=== PATIENT | female | born 1955 | race Caucasian/White ===

== ENCOUNTER → 2016-11-02 | Outpatient (CLI) | payer BC, SELFPAY ==
--- NOTE | 2016-11-02 10:50 | US ---
EXAM DESCRIPTION: Right leg venous Doppler sonogram CLINICAL HISTORY: Leg pain concern for DVT COMPARISON: None Available. TECHNIQUE: Grayscale color flow and spectral venous doppler sonography right leg FINDINGS: Deep veins of the right leg are patent and compressible. No intraluminal thrombus. Normal spontaneous and augmented flow. IMPRESSION: No evidence of deep venous thrombosis right leg Electronically signed by: Augustine Lake MD 11/02/2016 10:48
== END ==
LOC: US 09:44
PROVIDERS: ATTEND Nurse Practitioner Family
DX: M79.604 Pain in right leg (principal)

== ENCOUNTER → 2016-11-09 | Outpatient (CLI) | payer BC, SELFPAY ==
--- NOTE | 2016-11-10 08:06 | MRI ---
EXAM DESCRIPTION: MR LUMBAR SPINE WITHOUT IV CONTRAST CLINICAL HISTORY: Right lower extremity radiculopathy. Back pain. COMPARISON: None Available. TECHNIQUE: MRI of the lumbar spine is performed according to our usual protocol with axial and sagittal multi sequence imaging. FINDINGS: There is good alignment of the lumbar spine. There is no vertebral pathology. L1-2: the disc is well hydrated. There is no loss of height. There is no bulging. The facets are unremarkable with no significant hypertrophy. There is no stenosis or impingement. L2-3: the disc is well hydrated. There is no loss of height. There is no bulging. The facets are unremarkable with no significant hypertrophy. There is no stenosis or impingement. L3-4: the disc is well hydrated. There is no loss of height. There is no bulging. The facets are unremarkable with no significant hypertrophy. There is no stenosis or impingement. L4-5: the disc is well hydrated. There is no loss of height. There is no bulging. The facets are unremarkable with no significant hypertrophy. There is no stenosis or impingement. L5-S1: There is marked narrowing and desiccation of the disc with a large right paracentral disc herniation. The disc herniation measures 12 mm beyond the expected posterior disc margin and measures about 12 mm in transverse diameter as well. This disc herniation markedly displaces the descending right S1 nerve root somewhat effacing the right anterolateral aspect of the thecal sac as well. There is no resulting spinal stenosis or L5 foraminal stenosis. The facets are unremarkable at this level. IMPRESSION: 1. Large right paracentral L5-S1 disc herniation Electronically signed by: Brennon Alegria MD 11/10/2016 08:04
== END ==
LOC: RAD 14:04
PROVIDERS: ATTEND Family Medicine
DX: M51.16 Intervertebral disc disorders with radiculopathy, lumbar region (principal)

== ENCOUNTER 2017-07-26 12:44 | Emergency (ER) | payer BC, SELFPAY ==
[2017-07-26 13:32] VITALS: TEMP 98
[2017-07-26] MEDS ORDERED: KETOROLAC TROMETHAMINE INJ 30 MG/ML VIAL IM ONE (13:42)
[2017-07-26] MEDS ORDERED: PROMETHAZINE HCL INJ 25 MG in SODIUM CHLORIDE 0.9% 50ML 50 ML IVPB ONE (13:42)
[2017-07-26] MEDS ORDERED: HYDROmorphone HCL INJ 2 MG/ML VIAL IV ONE (13:42)
[2017-07-26] MEDS ORDERED: SODIUM CHLORIDE 0.9% 1000ML 1,000 ML IVS ONE ×2 (13:42→16:28)
[2017-07-26] MEDS ORDERED: PROMETHAZINE HCL INJ 25 MG/ML VIAL ONE ×2 (14:09→14:48)
[2017-07-26] MEDS ORDERED: SODIUM CHLORIDE 0.9% 50ML 0 ML ONE (14:10)
--- NOTE | 2017-07-26 14:43 | RAD ---
EXAM DESCRIPTION: KUB CLINICAL HISTORY: possible right kidney stone COMPARISON: None. IMPRESSION: Single AP supine view of the abdomen shows a nonspecific, nonobstructive bowel gas pattern. No air-filled dilated loops of small bowel are seen. No abnormal calcifications are seen in the expected location of the kidneys or ureters. Several vascular appearing calcifications are seen in the lower left hemipelvis. Electronically signed by: Remigio Pastrana MD 07/26/2017 2:41 PM CDT
[2017-07-26] MEDS ORDERED: SODIUM CHLORIDE 0.9% 50ML 50 ML ONE (14:48)
--- NOTE | 2017-07-26 17:43 | CT ---
EXAM DESCRIPTION: Abdoment/Pelvis w/o Contrast CLINICAL HISTORY: suspect left kidney stone COMPARISON: None Available TECHNIQUE: Contiguous axial images of the abdomen and pelvis were obtained followed by reconstruction images. This exam was performed according to our departmental dose-optimization program, which includes automated exposure control, adjustment of the mA and/or kV according to patient size and/or use of iterative reconstruction technique. FINDINGS: Linear opacities within the lungs may represent scar versus subsegmental atelectasis. The left kidney demonstrates hydronephrosis due to a 4 mm stone within the distal ureter. There are other nonobstructing stones within the kidneys. Calcifications within the pelvis compatible with phleboliths. There are diverticuli without CT evidence of acute diverticulitis. There is an umbilical hernia with fatty component only. The liver, spleen, pancreas and kidneys are otherwise within normal limits. . The gallbladder is unremarkable by CT criteria. Adrenal glands are within normal limits. Aorta is of normal caliber and tapering. There is no free fluid in the abdomen or pelvis. There is no bowel obstruction. There is no stranding of the mesenteric fat to suggest an inflammatory response. The appendix is within normal limits. There is no pericecal inflammation. IMPRESSION: Left-sided hydronephrosis due to a 4 mm stone within the distal ureter. Electronically signed by: Jose Manuel Infante MD 07/26/2017 5:42 PM CDT
[2017-07-26] MEDS ORDERED: amLODIPine BESYLATE 5 MG TAB PO ONE (17:48)
--- NOTE | 2017-07-26 17:50 | ED.PDOC ---
History of Present Illness - General Chief Complaint: Problem Time Seen by Provider: 07/26/17 12:45 Source: patient Exam Limitations: no limitations - History of Present Illness Initial Comments: the patient is 61-year-old female presenting to the emergency room secondary to left flank pain. It started acutely around 2:30 this morning. After approximately 12-14 hours she can take the pain no longer so she should appear. She reports that it feels like a kidney stone she has had in the past. It is flank pain with some radiation to the groin. There is some dysuria. When the pain has gotten its worst it is making her throw up. No syncope. No chest pain. Timing/Duration: constant Severity: severe Improving Factors: nothing Worsening Factors: nothing Associated Symptoms: nausea/vomiting Allergies/Adverse Reactions: Allergies NO KNOWN ALLERGY Allergy (Verified 04/07/14 09:56) Home Medications: Ambulatory Orders Rrgdxehxywzgj-Rxxr-Pzcnugntbr [Fioricet] 1 ea PO Q8H PRN #21 tab 07/26/17 Ondansetron [Zofran Odt] 4 mg PO Q4H PRN #10 tab 07/26/17 Review of Systems - Review of Systems Constitutional: States: no symptoms reported EENTM: States: no symptoms reported Respiratory: States: no symptoms reported Cardiology: States: no symptoms reported Gastrointestinal/Abdominal: States: nausea, vomiting Genitourinary: States: dysuria, frequency, pain Musculoskeletal: States: back pain Skin: States: no symptoms reported Neurological: States: no symptoms reported Endocrine: States: no symptoms reported All other Systems: No Change from Baseline Past Medical History (General) - Patient Medical History Hx Seizures: No Hx Stroke: No Hx Dementia: No Hx Asthma: No Hx of COPD: No Hx Cardiac Disorders: No Hx Pacemaker: No Hx Diabetes: No Surgical History: other Family Medical History - Family History Mother Family History: No Known Physical Exam - Physical Exam General Appearance: Alert, Anxious, Obvious distress Eye Exam: bilateral normal Ears, Nose, Throat: hearing grossly normal, normal ENT inspection, normal pharynx Neck: full range of motion, supple Respiratory: chest non-tender, lungs clear, normal breath sounds, no respiratory distress, no accessory muscle use Cardiovascular/Chest: normal peripheral pulses, regular rate, rhythm, no edema Peripheral Pulses: radial,right: 2+, radial,left: 2+, dorsalis pedis,right: 2+, dorsalis pedis,left: 2+, posterior tibialis,right: 2+, posterior tibialis,left: 2+ Gastrointestinal/Abdominal: non tender, soft Rectal Exam: deferred Back Exam: normal inspection, no vertebral tenderness, CVA tenderness (L) Extremity: normal range of motion, non-tender, normal inspection, no pedal edema 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 The stone does appear to be moving down the ureter. It is 4 mm in diameter. It is likely that she will pass this on her own. The patient will be written for Fioricet and Zofran for as needed use. She needs to increase her fluid intake. She needs to ambulate. ER warnings are given for any worsening. She needs to follow up with her primary care doctor later this week for reevaluation. No evidence of urinary tract infection at this time. - Results/Orders Results/Orders: Laboratory Results - last 24 hr 07/26/17 07/26/17 07/26/17 14:05 14:05 16:00 WBC 11.4 H RBC 4.51 Hgb 14.4 Hct 43.1 MCV 95.5 MCH 32.0 H MCHC 33.5 RDW 14.2 Plt Count 219 MPV 8.1 Absolute Neuts (auto) 9.80 H Absolute Lymphs (auto) 1.00 Absolute Monos (auto) 0.40 Absolute Eos (auto) 0.00 Absolute Basos (auto) 0.10 Neutrophils % 86.8 H Lymphocytes % 9.0 L Monocytes % 3.7 Eosinophils % 0.0 L Basophils % 0.5 Sodium 135 Potassium 4.1 Chloride 100 L Carbon Dioxide 26 Anion Gap 13.1 BUN 15 Creatinine 0.96 BUN/Creatinine Ratio 15.6 Random Glucose 133 H Serum Osmolality 272.8 L Calcium 9.8 Magnesium 2.1 Total Bilirubin 0.9 AST 20 ALT 22 Alkaline Phosphatase 51 Creatine Kinase 75 CK-MB (CK-2) 1.8 CK-MB (CK-2) % Not Reportable Troponin I < 0.02 Serum Total Protein 8.4 H Albumin 4.6 Globulin 3.8 H Albumin/Globulin Ratio 1.2 Amylase 52 Lipase 45 Urine Color Yellow Urine Appearance Sl cloudy Urine pH 7.0 Ur Specific [place] 1.015 Urine Protein Negative Urine Glucose (UA) Negative Urine Ketones Negative Urine Blood Large H Urine Nitrite Negative Urine Bilirubin Negative Urine Urobilinogen 0.2 Ur Leukocyte Esterase Negative Urine RBC >50 H Urine WBC 0-1 Ur Epithelial Cells 0-1 Urine Bacteria [address] scan of the abdomen and pelvis without contrast shows a 4 mm obstructing stone in the distal left ureter with mild hydronephrosis. Departure - Departure Clinical Impression: Calcium ureterolithiasis Disposition: Discharge to Home or Self Care Condition: Fair Departure Forms: ED Discharge - Pt. Copy, Patient Portal Self Enrollment Instructions: DI for Kidney Stones Diet: regular diet Activity: increase activity as tolerated Referrals: Jeb Guy III, MD [Primary Care Provider] - 1-2 Weeks Prescriptions: Wyuczdjehitkd-Wzel-Kshrsseegf [Fioricet] 1 ea PO Q8H PRN #21 tab PRN Reason: Pain Ondansetron [Zofran Odt] 4 mg PO Q4H PRN #10 tab PRN Reason: Vomiting Home Medications: Ambulatory Orders Sorvfkgkfehsg-Toce-Wqqwohvrel [Fioricet] 1 ea PO Q8H PRN #21 tab 07/26/17 Ondansetron [Zofran Odt] 4 mg PO Q4H PRN #10 tab 07/26/17 Additional Instructions: the patient is 61-year-old female presenting with a kidney stone on the left. The stone does appear to be moving down the ureter. It is 4 mm in diameter. It is likely that she will pass this on her own. The patient will be written for Fioricet and Zofran for as needed use. She needs to increase her fluid intake. She needs to ambulate. ER warnings are given for any worsening. She needs to follow up with her primary care doctor later this week for reevaluation. No evidence of urinary tract infection at this time.
[2017-07-26] MEDS ORDERED: HYDROcodone 7.5MG/APAP 325MG 1 EA TAB PO ONE (17:52)
[2017-07-26 17:59] VITALS: BP 129/80; O2SAT 97
== END 2017-07-26 18:20 | disposition home or self-care (01) ==
LOC: ER 12:44
DX: N13.2 Hydronephrosis with renal and ureteral calculous obstruction (principal)
CPT/HCPCS: 74000; 74176; 80053; 81001; 82150; 82550; 82553; 83690; 83735; 84484; 85025; A4216; J1170; J1885; J2550; J7030

== ENCOUNTER → 2019-07-12 | Outpatient (CLI) | payer MEDICARE, OTHER | LOC: GMAL 10:53 | PROVIDERS: ATTEND Family Medicine | DX: E53.8 Deficiency of other specified B group vitamins (principal); R53.83 Other fatigue; E55.9 Vitamin D deficiency, unspecified; I10 Essential (primary) hypertension; E78.2 Mixed hyperlipidemia ==

== ENCOUNTER → 2019-09-07 | Outpatient (CLI) | payer MEDICARE, OTHER ==
--- NOTE | 2019-09-07 11:34 | MRI ---
EXAM DESCRIPTION: Lumbar Spine w/o Contrast : Magnetic Resonance Imaging. CLINICAL HISTORY: LOW BACK PAIN COMPARISON: MRI scan lumbar spine 09 November 2016. TECHNIQUE: Multiplanar, multiple standard sequences, non contrast MRI, lumbar spine. FINDINGS: L5-S1: The disc is well visualized on axial T2 series 501, image 3. Moderate disc space loss and diffuse moderate endplate reactive changes bilaterally and anteriorly. Tiny posterior disc bulge, to the right of midline. Right posterior disc herniation on the prior study no longer visible. Trace retrolisthesis. Minimal hypertrophic facet arthrosis bilaterally and ligament thickening on the left. Minimal narrowing of the right subarticular recess. Mild right paracentral canal narrowing. Disc osteophyte complex also bulging laterally on the left and posterior laterally on the right into the foramen. Mild to moderate left foraminal narrowing and mild right foraminal narrowing. L4-L5: Disc desiccation with disc space preserved. Posterior bilateral hypertrophic facet arthrosis and posterior ligament thickening abutting the thecal sac. AP canal diameter 10 mm. Moderate right foraminal narrowing and mild to moderate left foraminal narrowing. Stable since the prior study. L3-L4: Minimal disc desiccation with disc space preserved. No bulging. Posterior bilateral hypertrophic facet arthrosis and flavum ligament thickening with AP canal 11 mm. Mild bilateral foraminal narrowing. No change from the prior study. L2-L3: Normal signal in the disc with disc space preserved. Hypertrophic facet arthrosis and ligament thickening on the left with fluid versus cyst in the left flavum ligament. Stable since the prior study. Mild canal narrowing. Bilateral foramina are patent. L1-L2: Minimal disc desiccation with disc space preserved. No posterior bulging. Hypertrophic left facet and thickening of the ligament. Conus terminates at this level. No change from the prior study. T12-L1: Normal signal in the disc with disc space preserved. Posterior elements unremarkable. Canal and neural foramina are patent. Stable since the prior study. No significant scoliosis. Paravertebral soft tissues negative except for small bilateral renal cysts.. Distal cord normal signal and caliber. Heterogeneous marrow signal in the T1 and T2 sequences in the vertebral bodies and the posterior elements. Probable hemangiomas T12 and L2 vertebral bodies. No abnormal marrow edema on the STIR sagittal sequence. Vertebral bodies are not compressed at any level. IMPRESSION: 1. Multiple levels of hypertrophic facet arthrosis and posterior ligament thickening. 2. Right posterior L5-S1 disc herniation no longer visualized. No postsurgical changes in the soft tissues. History of microdiscectomy? Mild right paracentral canal narrowing. 3. Borderline mild central canal stenosis at L4-L5 secondary to hypertrophy of the posterior elements. Near stenosis of the central canal at L3-L4 due to same factors. Stable since the prior study. 4. Edema or possible synovial cyst embedded in the left posterior flavum ligament at L2-3, stable since the prior study. Electronically signed by: Mike Borden MD 09/07/2019 11:32 AM [facility]
== END ==
LOC: MRI 07:00
PROVIDERS: ATTEND Family Medicine
DX: M47.896 Other spondylosis, lumbar region (principal); M48.061 Spinal stenosis, lumbar region without neurogenic claudication; M24.28 Disorder of ligament, vertebrae

== ENCOUNTER → 2019-10-02 | Outpatient (CLI) | payer MEDICARE, OTHER ==
--- NOTE | 2019-10-02 10:19 | RAD ---
EXAM DESCRIPTION: Foot,Right 3 Views CLINICAL HISTORY: 63 years Female, FOOT PAIN COMPARISON: None. Findings: Three views/radiographs Osteopenia. No acute fracture or dislocation. Lisfranc alignment is maintained. Moderate midfoot osteoarthritis. Calcaneal enthesophytes. Pes planus. Bifid distal phalanx fifth digit. IMPRESSION: Chronic and degenerative changes. No acute fracture or dislocation identified. Electronically signed by: Jermaine Asif MD 10/02/2019 10:18 AM [facility]
== END ==
LOC: RAD 07:42
PROVIDERS: ATTEND Orthopaedic Surgery
DX: M19.071 Primary osteoarthritis, right ankle and foot (principal)